=== PATIENT | male | born 1975 | race Caucasian/White ===

== ENCOUNTER 2024-10-16 22:26 | Emergency (ER) | payer OTHER, SELFPAY ==
[2024-10-16] VITALS (7 sets, daily range): BP systolic 131–164; BP diastolic 94–111; PULSE 97–186; RESP 16–24; TEMP 37; O2SAT 95–98; BMI 40.1
--- NOTE | 2024-10-16 22:30 | EKG_ITS ---
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
--- NOTE | 2024-10-16 22:45 | PC.NURSE ---
Pads placed on pt's chest and connected to zoll monitor. Dr Clark at the bedside, plan to cardiovert with adenosine.
[2024-10-16] MEDS: ADENOSINE INJ 3 MG/ML VIAL 6 MG IVP (22:51)
--- NOTE | 2024-10-16 22:53 | PD.EDARRY ---
ED Arrhythmia Palp. RME/HPI General Chief Complaint: Shortness of Breath/Dyspnea Stated Complaint: FEELS HEART BEATING FAST; HX SVT Time Seen by Provider: 10/16/24 22:40 Arrival date/time: 10/16/24 22:26 RME / HPI RME / HPI narrative: Dr. Clark?s Main ED Evaluation: 49yo male with a history of HTN, SVT presents to the ED for a chief complaint of palpitations x 40 minutes. Patient states he frequently has episodes of palpitations, reporting he usually bears down and his symptoms subside. Patient states he attempted to bear down without any resolution of symptoms, so he came in for evaluation. He denies any chest pain, shortness of breath or any other associated symptoms. Patient notes he has not taken his HTN medications in 3 months due to not following-up with his PCP. Denies any tobacco or illicit drug use. Denies consuming caffeine or energy drinks. No known allergies. Related Data Allergies Allergy/AdvReac Type Severity Reaction Status Date / Time NKA* Allergy Uncoded 10/16/24 22:29 Review of Systems Review of Systems Systems Reviewed: All systems reviewed, normal except as documented Narrative Review of Systems: Gen: No fever, no chills, no weight loss EYES: No discharge, no visual changes, no pain HEENT: No ear pain, no congestion, no sore throat PULM: No shortness of breath, no cough, no congestion CV: No chest pain, no dyspnea on exertion, + palpitations GI: No nausea, no vomiting, no diarrhea, no pain, no constipation : No frequency, no urgency, no dysuria Musc/skel: No joint pain, no back pain Skin: No rash. Warm and dry. Psyc: No hallucinations, no depression Heme/Lymph: No easy bleeding or bruising tendencies Neuro: No weakness, no headache Past Medical History Social History SMOKING STATUS: Never smoker ED Exam Narrative Physical exam: GENERAL APPEARANCE: AxOx4, generally well-appearing, no acute distress. HEENT: NC, AT. MMM. EOMI, clear conjunctiva, oropharynx clear. NECK: Supple without lymphadenopathy. No stiffness or restricted ROM. 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 No crackles or wheezes are heard. ABDOMEN: Soft, nontender, nondistended with good bowel sounds heard. BACK: No midline C/T/L spine pain or deformity, No CVAT, no obvious deformity. EXTREMITIES: Without cyanosis, clubbing or edema. MUSCULOSKELETAL: FROM of all major joints, no chest tenderness NEUROLOGICAL: Grossly nonfocal. Alert and oriented, moving all 4 extremities. CN not formally tested but appear grossly intact. Observed to ambulate with normal gait. Skin: Warm and dry without any rash. Course Course Course Narrative: 2251: Adenosine 6mg given. Patient converted to sinus tachycardia with a HR in the 110s. Quality Measures none Orders Category Date Time Status EKG (ED ONLY) *Do not use* NOW Care 10/16/24 22:30 Completed EKG (ED Only) Stat Exams 10/16/24 22:30 Draft Adenosine 6mg Inj [Adenocard Inj] Med 10/16/24 22:49 Discontinued 12 mg IVP X1 ONE Adenosine 6mg Inj [Adenocard Inj] Med 10/16/24 22:45 Discontinued 6 mg .ROUTE .STK-MED ONE Adenosine 6mg Inj [Adenocard Inj] Med 10/16/24 22:49 Discontinued 6 mg IVP X1 ONE Vital Signs Vital signs: Vital Signs Temperature 98.6 F 10/16/24 22:33 Pulse Rate 186 H 10/16/24 22:33 Respiratory Rate 24 H 10/16/24 22:33 Blood Pressure 152/101 H 10/16/24 22:33 Pulse Oximetry (%) 97 10/16/24 22:33 Oxygen Delivery Method Room Air 10/16/24 22:33 Pulse ox is 97% on room air, which is normal according to my interpretation. Arrhythmia/Palpitations MDM Narrative MDM Narrative:: Scribe Attestation: 10/16/24 Itzel Posadas am scribing for and in the presence of Dr. Clark. Patient data External records reviewed:: [facility] previous records (Per chart review, patient has no previous ED visits or admissions to this facility.) Clinical information provided by:: patient Social determinants that could affect healthcare access:: none Patient has the following chronic illnesses:: HTN How is presenting disease/condition affected by chronic disease/condition?: uneffected by Evaluation data The following diagnostics were reviewed and interpreted by me:: lab results and EKG tracing(s) Lab and/or radiology exams considered but not ordered:: none Interpretation Summary: Glucose is 356, otherwise, BMP is normal, according to my interpretation. EKG done at 2236, SVT, rate of 184, narrow complexes, no acute ST or T wave changes, no STEMI, according to my interpretation. Medications / Prescriptions Medications or Prescriptions considered but not ordered:: none Medication administrations:: Medication Administration History Discontinued Medications Adenosine (Adenosine Inj 3 Mg/Ml Vial) 6 mg IVP X1 ONE Stop: 10/16/24 22:50 Last Admin: 10/16/24 22:51 Dose: 6 mg Documented By: KG Adenosine (Adenosine Inj 3 Mg/Ml Vial) 12 mg IVP X1 ONE Stop: 10/16/24 22:50 Adenosine (Adenosine Inj 3 Mg/Ml Vial) Confirm Administered Dose 6 mg .ROUTE .STK-MED ONE Stop: 10/16/24 22:46 see above Consultations Consultation(s) initiated? (list below): No Diagnosis Differential diagnosis arrhythmia/palpitations: sinus tachycardia, artial fibrillation, artial flutter and supraventricular tachycardia Most likely diagnosis given after review of the tests above:: see below Admission Indicated Admission indicated?: not indicated Explain why admission is indicated or not indicated:: Admission criteria not met. Admission Request Was there a request for admission?: No Disposition Plan Disposition Plan: Discharge Discharge Attestation Discharge Attestation: The patient and all family members were given an opportunity to ask questions and understood the discharge instructions. Discharge instructions specifically effects, indications for sooner follow up or return to the emergency department, and the expected course of current diagnosis. Patient condition: Stable Discharge Plan Plan Patient Disposition: HOME (Self Care) Problem List Clinical Impression: Paroxysmal supraventricular tachycardia Patient/Caregiver Discharge Instructions Education Materials: ED Tachycardia: PAT Additional Instructions: Follow-up with your primary care doctor in 2 to 3 days if symptoms or not improving. You can return to the emergency department sooner if symptoms worsen or if you notice any new, concerning issues. Print Language: [place] Stand Alone Forms: Teresa Award Info., Patient Portal Info Letter
[2024-10-16 23:21] LABS: Anion Gap 11 (7-16); BUN/Creatinine Ratio 10 Ratio (12-20); Blood Urea Nitrogen 13 mg/dL (9-23); Calcium 9.9 mg/dL (8.3-10.6); Carbon Dioxide 26.4 mMol/L (20.0-31.0); Chloride 100 mMol/L (98-107); Creatinine (Component) 1.3 mg/dL (0.6-1.3); Glucose 356 mg/dL (74-106); Osmolality,Calculated 287 (275-295); Potassium 3.6 mMol/L (3.4-5.1); Sodium 137 mMol/L (136-145); eGFR > 60 See Note
== END 2024-10-16 23:53 | disposition home or self-care (01) ==
PROVIDERS: Emergency Provider Emergency Medicine; PCP Family Medicine
DX: I47.19 Other supraventricular tachycardia (principal); I10 Essential (primary) hypertension
CPT/HCPCS: 36415; 80048; 93005; 96374; 99284; J0153

== ENCOUNTER 2025-07-06 19:21 | Emergency (ER) | payer OTHER, SELFPAY ==
[2025-07-06 19:22] VITALS: BMI 38.7
--- NOTE | 2025-07-06 19:23 | EKG_ITS ---
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1975 Requested By: ED Temporary Provider Order Number: [id number] Reading MD: ED Temporary Provider Measurements Intervals [place] Rate: 105 P: 29 [place]: 161 QRS: -25 QRSD: 104 T: 60 QT: 346 QTc: 458 Interpretive Statements SINUS TACHYCARDIA POSSIBLE LEFT ATRIAL ENLARGEMENT [-0.1mV P-WAVE IN V1/V2] BORDERLINE LEFT AXIS DEVIATION [QRS AXIS < -20] NONSPECIFIC ST & T-WAVE ABNORMALITY ABNORMAL RHYTHM ECG Compared to ECG 10/16/2024 22:36:09 T-wave abnormality now present Supraventricular tachycardia no longer present ST (T wave) deviation no longer present /store/S0/[id number]/ecg/[id number].pdf
[2025-07-06 19:30] VITALS: BP 132/94; PULSE 197; RESP 17; TEMP 37.4; O2SAT 96
--- NOTE | 2025-07-06 19:31 | PD.EDADULT ---
ED General RME/HPI General Chief complaint: Arrhythmia/Palpitations Stated complaint: HEART RATE OVER 200 Time Seen by Provider: 07/06/25 19:30 Arrival date/time: 07/06/25 19:21 RME / HPI RME / HPI narrative: Sammy is a 49 y/o male with PMHx hypertension and SVT comes in for an evaluation after his heart rate had jumped up to 200s seen on his Apple Watch while playing videogames. Patient reports that he was diagnosed with SVT 7 years ago and was seen by Dr. Leger who had did a cardiac cath and a Holter monitor which was negative on him. He also says that he was seen in the emergency room for similar episode of SVT in which he was given adenosine 2 times and this happened in October 2024 and he was discharged from the ED. He reports this time he also had associated symptoms of chest palpitations and diaphoresis, however no chest pain. He reports the only caffeinated beverage she had today was a Coke and reports that he was playing videogames today. He has not seen a slat twister in over 7 years. He says that he has high blood pressure and takes a blood pressure medicine for it on and off. Denies any smoking history, drug use or drinking history. 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 No other complaints at this time. Related Data Previous Rx's ?Medication ?Instructions ?Recorded metoprolol tartrate 25 mg tablet 12.5 mg (1/2 x 25 mg) PO QDAY PRN 07/06/25 palpitations 1 month #15 tabs Allergies Allergy/AdvReac Type Severity Reaction Status Date / Time No Known Allergies Allergy Verified 07/06/25 19:22 Review of Systems Review of Systems Narrative Review of Systems: Constitutional: No fever, chills, fatigue, weakness, weight loss HEENT: No eye pain, vision loss, ear pain, hearing loss, dysphagia, Cardiovascular: No chest pain, + palpitations, no edema, pain with walking Respiratory: No cough, shortness of breath, wheezing GI: No NVD, abdominal pain, constipation, blood in stool, loss of appetite, heartburn Extremities: No presence of pitting edema MSK: No back pain, joint pain, joint swelling Neuro: No dizziness, numbness, weakness, headaches, seizures, tremors Psych: No anxiety, depression ED Exam Narrative Physical exam: General: AAOx3, NAD, obese male, pleasant HEENT: Moist mucous membranes, conjunctiva clear, EOMI, PERRLA, Cardiovascular: S1, S2, radial pulses +2 bilat, RRR Pulmonary: CTAB bilat no cough, no wheezing GI: No tenderness to light or deep palpitation, no guarding, rigidity, rebound tenderness or distension Extremities: Trace edema in lower extremities bilaterally, dorsalis pedis pulses +2 bilaterally Neuro: AAOx3, no focal motor or sensory deficits in the UE or LE bilat Psych: Good judgement, thought and behavior Course Quality Measures none Orders Category Date Time Status Bedside Blood Glucose AC Care 07/06/25 21:05 Active Bedside COVID-19 Antigen Test NOW Care 07/06/25 19:29 Active Bedside Influenza A&B Antigen Test NOW Care 07/06/25 19:29 Completed EKG (ED ONLY) *Do not use* NOW Care 07/06/25 19:23 Completed Insert IV NOW Care 07/06/25 19:29 Active EKG (ED Only) Stat Exams 07/06/25 19:23 Draft XR chest 1V portable Stat Exams 07/06/25 19:50 Completed BNP [B-Type Natriuretic Peptide] Stat Lab 07/06/25 19:35 Completed CBC Stat Lab 07/06/25 19:35 Completed CMP [Comprehensive Metabolic Panel] Stat Lab 07/06/25 19:35 Completed D-Dimer Stat Lab 07/06/25 19:35 Completed Mag [Magnesium] Stat Lab 07/06/25 19:35 Completed Thyroid Stimulating Hormone Stat Lab 07/06/25 19:35 Completed Troponin I Stat Lab 07/06/25 19:35 Completed ALBUTEROL RT 3ml [Proventil Rt 3ml] Med 07/06/25 21:04 Discontinued 2.5 mg INH X1 ONE Dextrose 50% Syr [D50w Syringe Abboject] Med 07/06/25 21:05 Active 25 ml IV Q15MIN PRN Dextrose 50% Syr [D50w Syringe Abboject] Med 07/06/25 21:05 Active 50 ml IV Q15MIN PRN Glucagon Inj Med 07/06/25 21:05 Active 1 mg IM Q15MIN PRN Insulin Regular Med 07/06/25 21:04 Discontinued 5 unit IV X1 ONE Magnesium Sulfate 1 gm Ivpb [Magnesium Sulfate Ivpb] Med 07/06/25 21:49 Active 1 gm in 100 ml IV X1 Potassium Chloride [K-Dur] Med 07/06/25 21:49 Discontinued 40 meq PO X1 ONE Vital Signs Vital signs: Vital Signs Temperature 99.3 F 07/06/25 19:30 Pulse Rate 197 H 07/06/25 19:30 Respiratory Rate 17 07/06/25 19:30 Blood Pressure 132/94 H 07/06/25 19:30 Pulse Oximetry (%) 96 07/06/25 19:30 Oxygen Delivery Method Room Air 07/06/25 19:30 Discharge Plan Plan Patient Disposition: HOME (Self Care) Patient condition on transfer: Stable Health Concerns: Discharge instructions Follow-up with your PCP within 1 week To make sure there is no serious underlying heart condition, ask to help you get more tests for your heart that cannot be done here in the ER. Such as Holter Monitor (cardiac monitoring at home from a day to even a month), heart stress test (on treadmill or with medication), echocardiogram (imaging of your heart structures), heart catherization (checking for blockages in your heart arteries), and a referral to see a Instructor Programmable Controllers. I am prescribing you with a low dose beta tiffani called Metoprolol, take as prescribed. This is to lower your heart rate AVOID ANY CAFFEINATED BEVERAGES, LIMIT VIDEOGAME PLAYING Follow up with your slat twister. Have your PCP refer you to one. Return to ED if your symptoms worsen or return Prescriptions/Referrals Prescriptions/Med Rec: New metoprolol tartrate 25 mg tablet 12.5 mg PO QDAY PRN (Reason: palpitations) 30 Days Qty: 15 0RF Rx Instructions: Take half a tablet by mouth as needed for palpitations Referrals: Collin Barajas PA-C [Primary Care Provider] - In 1 week Problem List Clinical Impression: Paroxysmal supraventricular tachycardia Patient/Caregiver Discharge Instructions Discharge Activity: back to school once clear Print Language: [place] Stand Alone Forms: [employer] Award Info., Patient Portal Info Letter MDM EKG Interpretation EKG #1: EKG Interpretation: Sinus tachycardia, heart rate 105, no STEMI, QT 346, no QRS widening Medication Administration(s) Medication Administration History Dextrose (Dextrose 50%-Water Inj 50 Ml Syringe) 25 ml IV Q15MIN PRN PRN Reason: BG 50-70 responsive npo pt Stop: 08/05/25 21:04 Dextrose (Dextrose 50%-Water Inj 50 Ml Syringe) 50 ml IV Q15MIN PRN PRN Reason: BG <50 OR BG <70 & pt unresponsive Stop: 08/05/25 21:04 Glucagon (Glucagon Inj 1 Mg Vial) 1 mg IM Q15MIN PRN PRN Reason: BG <70, and no IV access Magnesium Sulfate/Dextrose (Magnesium Sulfate Ivpb) 1 gm in 100 mls @ 100 mls/hr IV X1 ONE Stop: 07/06/25 22:48 Discontinued Medications Albuterol (Albuterol Rt 2.5 Mg/3 Ml Nebu) 2.5 mg INH X1 ONE Stop: 07/06/25 21:05 Last Admin: 07/06/25 21:28 Dose: Not Given Documented By: ANNETTE Non-Admin Reason: Patient Refused Insulin Human Regular (Insulin Hum Regular 1 Unit/0.01 Ml (Per Unit)) 5 unit IV X1 ONE Stop: 07/06/25 21:05 Last Admin: 07/06/25 21:27 Dose: 5 unit Documented By: ABDON Co-signed By: CVL Potassium Chloride (Potassium Chloride 20 Meq Tabcr) 40 meq PO X1 ONE Stop: 07/06/25 21:50 Consultations/Discussions re: Management Consult #1: Date/time: 07/06/25 10:10 pm Physician, specialty, service, details: 2100: Reviewed EKG as above, ordered labs, give hyperkalemia cocktail, give magnesium 2200: Spoke with hospitalist team who will review case for admission. 2231: Spoke with hospitalist team regards to case to recommend discharging patient on low-dose metoprolol, and to follow-up with outpatient cardiology and will require Holter monitoring and echocardiogram.
[2025-07-06 19:36] VITALS: PULSE 101
--- NOTE | 2025-07-06 19:50 | XR_ITS ---
Examination: AP chest single view Technique one AP portable upright chest single view Date and time: July 06, 2025, 2009 hrs. Indications: Chest pain cardiac palpitations today. Findings: Mild prominence left ventricle Moderate vascular congestion. No pneumonia or archie pulmonary edema. Moderate osteopenia Impression: Moderate vascular congestion
[2025-07-06 19:55] LABS: Basophils # (Auto) 0.0 Thou/mm3 (0.0-0.2); Basophils % (Auto) 0 % (0-2.5); Eosinophils # (Auto) 0.1 Thou/mm3 (0.0-0.5); Eosinophils % (Auto) 2 % (0-10); Hematocrit 45.8 % (41.0-53.0); Hemoglobin 16.2 g/dL (13.5-16.0); Immature Granulocytes Auto 0.01 Thou/mm3 (0.00-0.00); Lymphocytes # (Auto) 1.1 Thou/mm3 (1.0-4.8); Lymphocytes % (Auto) 23 % (10-50); Mean Corpuscular HGB Conc 35.4 g/dl (31.0-37.0); Mean Corpuscular Hemoglobin 31.0 pg (25.0-35.0); Mean Corpuscular Volume 88 fL (80-100); Monocytes # (Auto) 0.3 Thou/mm3 (0.0-0.8); Monocytes % (Auto) 6 % (0-12); Neutrophils # (Auto) 3.2 Thou/mm3 (1.8-7.7); Neutrophils % (Auto) 68 % (37-80); Nucleated Red Blood Cell # 0.00 Thou/mm3 (0.00-0.00); Nucleated Red Blood Cell % 0 /100 WBC (0); RDW Standard Deviation 38.6 fL (35.1-43.9); Red Blood Count 5.23 Miln/mm3 (4.50-5.90); White Blood Count 4.6 Thou/mm3 (3.8-10.6)
[2025-07-06 19:56] LABS: Platelet Count 64 Thou/mm3 (140-440)
[2025-07-06 19:57] LABS: Slide Review Platelets confirmed
[2025-07-06 20:09] LABS: D-Dimer < 250 ng/mL (<600)
[2025-07-06 20:14] LABS: Alanine Aminotransferase 45 U/L (10-49); Albumin, Serum 4.7 gm/dL (3.5-5.0); Albumin/Globulin Ratio 1.5 (1.2-2.2); Alkaline Phosphatase 130 U/L (46-116); Anion Gap 11 (7-16); Aspartate Amino Transferase 35 U/L (0-34); BUN/Creatinine Ratio 12 Ratio (12-20); Bilirubin,Total 0.9 mg/dL (0.3-1.2); Blood Urea Nitrogen 12 mg/dL (9-23); Calcium 9.8 mg/dL (8.3-10.6); Calcium (Corrected) 9.8 mg/dL (8.5-10.1); Carbon Dioxide 24.3 mMol/L (20.0-31.0); Chloride 101 mMol/L (98-107); Creatinine (Component) 1.0 mg/dL (0.6-1.3); Estimated Creatinine Clearance 116.0 mL/min (>60); Globulin 3.2 gm/dL (2.3-3.5); Glucose 357 mg/dL (74-106); Magnesium 2.0 mg/dL (1.6-2.6); Osmolality,Calculated 285 (275-295); Potassium 3.9 mMol/L (3.4-5.1); Sodium 136 mMol/L (136-145); Total Protein 7.9 gm/dL (5.7-8.2); Troponin I < 0.020 ng/mL (0.0-0.045); eGFR > 60 See Note
[2025-07-06 20:21] VITALS: BP 149/101; PULSE 97; RESP 16; TEMP 37; O2SAT 96
[2025-07-06 20:46] LABS: B-Type Natriuretic Peptide 32 pg/mL (0-100)
[2025-07-06 20:49] LABS: Thyroid Stimulating Hormone 2.80 uIU/mL (0.55-4.78)
[2025-07-06] MEDS: INSULIN HUM REGULAR 1 UNIT/0.01 ML (PER UNIT) 5 UNIT IV (21:27)
[2025-07-06 21:28] VITALS: PULSE 99; RESP 16; O2SAT 98
[2025-07-06 22:45] VITALS: BP 147/98; PULSE 98; RESP 16; TEMP 36.9; O2SAT 98
[2025-07-06 23:10] LABS: Glucose Estimated Average 217 mg/dL (80-131); Hemoglobin A1C 9.2 % Hgb (4.8-6.0)
== END 2025-07-06 23:36 | disposition home or self-care (01) ==
PROVIDERS: Emergency Provider Emergency Medicine; PCP Family Medicine
DX: I47.10 Supraventricular tachycardia, unspecified (principal); I10 Essential (primary) hypertension
CPT/HCPCS: 36415; 71045; 80053; 83036; 83735; 83880; 84443; 84484; 85025; 85379; 87400; 87811; 93005; 96365; 99284; J1815; J3475; A9270